=== PATIENT | female | born 1980 | race Caucasian/White ===

== ENCOUNTER → 2018-11-09 | Outpatient (CLI) | payer OTHER ==
--- NOTE | 2018-11-09 17:03 | RAD ---
EXAM: Pelvic sonogram. HISTORY: Left lower quadrant pain. TECHNIQUE: Transabdominal and transvaginal sonographic imaging of the pelvis was performed. COMPARISON: 08/15/2014. FINDINGS: The uterus measures 11.1 x 8.3 x 7.0 cm. The endometrial stripe measures 5.3 mm in thickness. The ovaries are normal in size and demonstrate normal blood flow. There is a 2.8 cm complex right ovarian cyst with internal septations. There is trace left adnexal free fluid. There is a 3.2 cm uterine fibroid. There are nabothian cysts within the cervix. IMPRESSION: 1. 2.8 cm complex right ovarian cyst with internal septations. 2. Trace left adnexal free fluid. 3. 3.2 cm uterine fibroid. Electronically signed by: Macarena Torres MD (11/09/2018 4:59 PM) [place] [id number]
== END | disposition home or self-care (01) ==
LOC: US 15:34
PROVIDERS: ATTEND Specialist
DX: N83.292 Other ovarian cyst, left side (principal); D25.9 Leiomyoma of uterus, unspecified
CPT/HCPCS: 76830; 76856